=== PATIENT | female | born 1970 | race Caucasian/White ===

== ENCOUNTER → 2017-02-27 | Outpatient (CLI) | payer OTHER ==
--- NOTE | 2017-03-02 11:46 | MM ---
Reason for exam: screening (asymptomatic). Last mammogram was performed 1 year ago. History: Family history of breast cancer in mother at age 62. Taking hormonal contraceptives for 23 years beginning at age 15. Physical Findings: A clinical breast exam by your physician is recommended on an annual basis and results should be correlated with mammographic findings. MG 3D Screening Mammo W/Cad Bilateral CC and MLO view(s) were taken. Prior study comparison: February 15, 2016, bilateral MG 3d diag mammo w/cad [facility]. January 05, 2015, bilateral MG 3d screening mammo w/cad. The breast tissue is heterogeneously dense. This may lower the sensitivity of mammography. No suspicious abnormality. No significant changes when compared with prior studies. ASSESSMENT: Negative, BI-RAD 1 RECOMMENDATION: Routine screening mammogram of both breasts in 1 year.
== END | disposition home or self-care (01) ==
LOC: RADMAMWWP 15:34
PROVIDERS: ATTEND Obstetrics & Gynecology
DX: Z12.31 Encounter for screening mammogram for malignant neoplasm of breast (principal); Z80.3 Family history of malignant neoplasm of breast
CPT/HCPCS: 77063; 77067

== ENCOUNTER → 2017-02-27 | Outpatient (CLI) | payer OTHER ==
[2017-02-27 16:25] LABS: Basophils % (A) 0 %; Eosinophils # (A) 0.1 k/uL (0-0.7); Eosinophils % (A) 1 %; HCT 40.9 % (34.0-46.0); HGB 13.6 gm/dL (11.4-16.0); Lymphocytes # (A) 2.8 k/uL (1.0-4.8); Lymphocytes % (A) 36 %; MCH 30.2 pg (25.0-35.0); MCHC 33.1 g/dL (31.0-37.0); Monocytes # (A) 0.4 k/uL (0-1.0); Monocytes % (A) 5 %; Neutrophils # (A) 4.4 k/uL (1.3-7.7); Neutrophils % (A) 56 %; Platelet Count 376 k/uL (150-450); RDW 12.6 % (11.5-15.5); WBC 7.8 k/uL (3.8-10.6)
[2017-02-27 16:36] LABS: Anion Gap 14 mmol/L; Blood Urea Nitrogen 17 mg/dL (7-17); Calcium 10.4 mg/dL (8.4-10.2); Carbon Dioxide 31 mmol/L (22-30); Chloride 99 mmol/L (98-107); Glucose 105 mg/dL (74-99); Potassium 3.8 mmol/L (3.5-5.1); Sodium 144 mmol/L (137-145)
== END | disposition home or self-care (01) ==
LOC: LABWHC1 16:00
PROVIDERS: ATTEND Internal Medicine Clinical Cardiac Electrophysiology
DX: I47.1 Supraventricular tachycardia (principal)
CPT/HCPCS: 36415; 80048; 85025; 85027

== ENCOUNTER 2017-03-16 09:15 | Day surgery (SDC) | payer OTHER ==
[2017-03-03 13:25] VITALS: BMI 22.8
[~2017-03-16 09:15] MED LIST: LACTATED RINGERS 1,000 ML IV SCH; MIDAZOLAM 2 MG/2 ML VIAL IV PRN; ONDANSETRON 4 MG/2 ML VIAL IVP ONE; fentaNYL (PF) 50 MCG/ML 2 ML AMP IV PRN
[2017-03-16] MEDS: SODIUM CHLORIDE 0.9% 1,000 ML IV SCH ×2 (09:37→19:43)
[2017-03-16] MEDS ORDERED: SODIUM CHLORIDE 0.9% 1,000 ML IV ONE (10:24)
[2017-03-16] MEDS ORDERED: ISOPROTERENOL 250 MCG/1.25 ML SYR IV ONE (13:24)
[2017-03-16] MEDS ORDERED: diphenhydrAMINE 50 MG/ML 1 ML VIAL ONE (13:24)
[2017-03-16] MEDS ORDERED: MIDAZOLAM 2 MG/2 ML VIAL ONE (13:24)
[2017-03-16] MEDS ORDERED: fentaNYL (PF) 50 MCG/ML 2 ML AMP ONE (13:24)
[2017-03-16] MEDS ORDERED: IV FLUID CONTINUATION 900 ML IV ONE (13:24)
[2017-03-16] MEDS ORDERED: PROPOFOL 10 MG/ML 20 ML VIAL IV ONE (13:24)
--- NOTE | 2017-03-16 13:54 | P.PCN ---
Preoperative Diagnosis: Tilt table test indication for procedure recurrent presyncopal spells Twelve-lead ECG shows sinus rhythm normal AR narrow QRS normal QT interval no delta waves no epsilon waves normal ST segments Tilt table test per protocol blood pressure at baseline was 138/84 mmHg Baseline heart rate 77 beats a minute Patient was tilted upright at an angle of 70 per protocol There was no change in her blood pressure but Baseline heart rate did increase from 75 beats a minute 109 beats a minute within the first 10 minutes and remained between 110-125 beats a minute thereafter at is the end of the procedure she did feel that the heart was racing a bit and heart rate was 124 beats a minute. When she was laid supine, heart rate decreased to 106 beats a minute Impression Mild orthostatic intolerance no evidence for neurocardiogenic phenomena
[2017-03-16] MEDS ORDERED: LIDOCAINE 2% INJ 20 MG/ML SQ ONE (14:00)
[2017-03-16] MEDS ORDERED: HEPARIN SODIUM (1,000 UNIT/ML) 1,000 UNIT in SODIUM CHLORIDE 0.9% 1,000 ML IRRIGATION ONE (14:31)
[2017-03-16] MEDS ORDERED: ACETAMINOPHEN TAB 325 MG TAB PO PRN (15:42)
[2017-03-16] MEDS ORDERED: HYDROcodone/APAP 5-325MG 1 EACH TAB PO PRN (15:42)
[2017-03-16] MEDS ORDERED: ACETAMINOPHEN IV (For NPO) 1,000 MG in EMPTY BAG 1 BAG IVPB ONE (15:42)
--- NOTE | 2017-03-16 16:42 | CE ---
CARDIAC ELECTROPHYSIOLOGY REPORT Rubia Staley is a 46-year-old female patient of Dr. Wilder who was referred for evaluation management of recurrent palpitations that was also was sensitive. She underwent a diagnostic EP study. Venous sheaths were placed in the right femoral vein (3 venous sheaths were placed in the right femoral vein) and diagnostic catheters were placed in the high right atrium, His bundle area and the RV. Later the catheter was placed in the coronary sinus. Sinus cycle length 694 milliseconds, KS interval 140 milliseconds. QRS 88 milliseconds, QT interval 375 milliseconds. Baseline AH interval 67 milliseconds, HV interval 41 milliseconds. Sinus node recovery times of 600, 500, and 400 milliseconds were 806 milliseconds, 783 and 742 milliseconds. AV node Wenckebach block 320 milliseconds. Tachycardia was very easily inducible. We estimate straight pacing from the high right atrium. CS pacing was also performed. It was more easily inducible from the high right atrial pacing. This appeared to be an atrial tachycardia in a hi to low sequence. 3D mapping of the right atrium was performed. The tachycardia was localized to the high ashwin in the right atrium. Phrenic nerve pacing was performed. There was no evidence for phrenic nerve stimulation at that site of earliest atrial activity. Excellent unipolar electrograms and very early bipolar electrograms were noted. Successful RF ablation was performed. The tachycardia was rendered completely noninducible. Thereafter, a detailed EP study was performed from the high right atrium, RV, coronary sinus and multiple areas along the focal site but no tachycardia was inducible. High- dose Isuprel was given. Atrial pacing was continued. No tachycardia was inducible. It was noted that prior to starting ablation Isuprel somewhat suppressed the tachycardia. Atrial extra stimulation was performed. Straight pacing was performed. Burst stimulation was performed. During RF ablation, the site in the focal tachycardia was originating in the ashwin and therefore ablation were performed both superiorly and inferior to the earliest site as well as on either side anteriorly and posteriorly on the ashwin. The ashwin was carefully localized electrically and ablated adequately to eliminate the tachycardia Patient tolerated the procedure well without any acute complications. 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 The tachycardia was rendered noninducible. PLAN: 1. Discontinue diltiazem. 2. Since the patient also has evidence of orthostatic intolerance, I would discontinue hydrochlorothiazide also. MMODL / IJN: [id number] /
[2017-03-17 01:39] VITALS: RESP 18
[2017-03-17 11:52] VITALS: BP 125/89; PULSE 102; TEMP 97.7
--- NOTE | 2017-03-17 11:55 | P.DS ---
Providers Attending physician: Sarthak Boudreaux Primary care physician: Stated None Hospital Course: Patient is doing well. She is ambulating in the hallways no chest discomfort no undue shortness of breath no pleuritic chest discomfort Vitals are stable, blood pressure 125/89 mmHg pulse rate 102 beats a minute temperature 97.7F Heart sounds S1-S2 are soft no murmurs or gallops Breath sounds are clear no rhonchi or crackles Abdomen is soft nontender Extremities are warm no edema Impression High right atrial tachycardia, Orthostatic intolerance Plan Stop hydrochlorothiazide stop diltiazem Follow up in the the office in 2-3 weeks Plan - Discharge Summary Discharge Rx Participant: Yes New Discharge Prescriptions: Discontinued Hydrochlorothiazide 25 mg PO DAILY Diltiazem Oral [Cardizem Oral] 30 mg PO BID No Action Ranitidine HCl [Zantac] 150 mg PO HS Norethindrone-E.estradiol-Iron [Gildess Fe 1-20 Tablet] 1 tab PO DAILY Niacin 500 mg PO DAILY Cholecalciferol [Vitamin D3] 5,000 unit PO DAILY Omeprazole 20 mg PO DAILY Turmeric Root Extract [Turmeric] 500 mg PO DAILY Ferrous Sulfate [Feosol] 325 mg PO FR Discharge Medication List Ranitidine HCl [Zantac] 150 mg PO HS 04/14/14 [History] Norethindrone-E.estradiol-Iron [Gildess Fe 1-20 Tablet] 1 tab PO DAILY 04/19/14 [History] Cholecalciferol [Vitamin D3] 5,000 unit PO DAILY 03/03/17 [History] Ferrous Sulfate [Feosol] 325 mg PO FR 03/03/17 [History] Niacin 500 mg PO DAILY 03/03/17 [History] Omeprazole 20 mg PO DAILY 03/03/17 [History] Turmeric Root Extract [Turmeric] 500 mg PO DAILY 03/03/17 [History] Follow up Appointment(s)/Referral(s): Sarthak Boudreaux MD [STAFF PHYSICIAN] - 2 Weeks (Office will call with appointment. ) Wes Wilder MD [STAFF PHYSICIAN] - 1 Week Patient Instructions/Handouts: Electrophysiology Study (DC) Activity/Diet/Wound Care/Special Instructions: Post EP study - Ablation instructions 1. Keep access sites dry for 2 days. 2. No heavy lifting or straining for 2 days. 3. Avoid bending the hips repeatedly for 2 days. 4. You may go up and down stairs slowly Call if the following is noted 1. Bleeding, increasing swelling or pain at the access sites. 2. Increasing chest discomfort, especially upon taking a deep breath. 3. Increasing shortness of breath, at rest or with exertion. 4. Undue cough / phlegm 5. Difficulty or pain while swallowing. 6. Pain or change in color in the extremities. 7. Fever, chills, rigors. 8. Increasing headache or neurologic symptoms. 9. Dizziness, fainting, palpitations Stop diltiazem, stop hydrochlorothiazide Continue all other medications all of Dr. Wilder in 1 week and follow with Dr. Boudreaux in 2-3 weeks
== END 2017-03-17 13:27 | disposition home or self-care (01) ==
LOC: CATHEP 09:15 → 3OBS 15:22 → CATHEP 03-17 13:27
PROVIDERS: ATTEND Internal Medicine Clinical Cardiac Electrophysiology
DX: I47.1 Supraventricular tachycardia (principal); I10 Essential (primary) hypertension; Z79.899 Other long term (current) drug therapy; Z88.6 Allergy status to analgesic agent; Z88.5 Allergy status to narcotic agent; Z88.8 Allergy status to other drugs, medicaments and biological substances
CPT/HCPCS: 93623; 93613; 93660; 93653; 82533; 81025; C1894; C1769 ×2; C1730; C1732; J2001; J2250; J1200; J3010; J1644; J0131; J2704; 93005

== ENCOUNTER → 2018-04-30 | Outpatient (CLI) | payer OTHER ==
--- NOTE | 2018-05-03 10:10 | MM ---
Reason for exam: screening (asymptomatic). Last mammogram was performed 1 year and 2 months ago. History: Family history of breast cancer in mother at age 62. Taking hormonal contraceptives for 23 years beginning at age 15. Physical Findings: A clinical breast exam by your physician is recommended on an annual basis and results should be correlated with mammographic findings. MG 3D Screening Mammo W/Cad Bilateral CC and MLO view(s) were taken. Prior study comparison: February 27, 2017, bilateral MG 3d screening mammo w/cad. February 15, 2016, bilateral MG 3d diag mammo w/cad [facility]. The breast tissue is heterogeneously dense. This may lower the sensitivity of mammography. Nodular density lower inner right breast 3.9cm from nipple. This finding is changed when compared with previous exams. ASSESSMENT: Incomplete: need additional imaging evaluation, BI-RAD 0 RECOMMENDATION: Special view mammogram of the right breast. If lesion persists on supplemental views, image directed ultrasound is recommended. [facility] will attempt to contact patient to return for supplemental views and ultrasound if indicated.
== END | disposition home or self-care (01) ==
LOC: RADMAMWWP 03-26 11:13
PROVIDERS: ATTEND Family Medicine
DX: Z12.31 Encounter for screening mammogram for malignant neoplasm of breast (principal)
CPT/HCPCS: 77063; 77067

== ENCOUNTER → 2018-05-14 | Outpatient (CLI) | payer OTHER ==
[2018-05-14 10:01] LABS: Basophils # (A) 0.1 k/uL (0-0.2); Basophils % (A) 1 %; Eosinophils # (A) 0.1 k/uL (0-0.7); Eosinophils % (A) 1 %; HCT 43.2 % (34.0-46.0); Lymphocytes # (A) 1.7 k/uL (1.0-4.8); Lymphocytes % (A) 27 %; MCH 29.7 pg (25.0-35.0); MCHC 32.5 g/dL (31.0-37.0); MCV 91.3 fL (80.0-100.0); Mean Platelet Volume 6.2; Monocytes # (A) 0.3 k/uL (0-1.0); Monocytes % (A) 5 %; Neutrophils # (A) 4.1 k/uL (1.3-7.7); Neutrophils % (A) 64 %; Platelet Count 313 k/uL (150-450); RBC 4.73 m/uL (3.80-5.40); RDW 12.9 % (11.5-15.5); WBC 6.4 k/uL (3.8-10.6)
[2018-05-14 10:03] LABS: INR 0.9 (<1.2); Prothrombin Time 9.5 sec (9.0-12.0)
[2018-05-14 10:26] LABS: Anion Gap 8 mmol/L; Blood Urea Nitrogen 12 mg/dL (7-17); Carbon Dioxide 30 mmol/L (22-30); Chloride 103 mmol/L (98-107); Glucose 91 mg/dL (74-99); Potassium 4.7 mmol/L (3.5-5.1); Sodium 141 mmol/L (137-145)
== END | disposition home or self-care (01) ==
LOC: LABWHC1 08:16
PROVIDERS: ATTEND Internal Medicine
DX: I47.1 Supraventricular tachycardia (principal)
CPT/HCPCS: 36415; 80048; 85025; 85610

== ENCOUNTER → 2018-05-14 | Outpatient (CLI) | payer OTHER ==
--- NOTE | 2018-05-14 12:26 | MM ---
Reason for exam: additional evaluation requested from abnormal screening. Last mammogram was performed less than 1 month ago. History: Family history of breast cancer in mother at age 62 and breast cancer in paternal cousin. Taking hormonal contraceptives for 23 years beginning at age 15. Physical Findings: A clinical breast exam by your physician is recommended on an annual basis and results should be correlated with mammographic findings. MG 3D Work Up W/Cad RT Spot compression CC, spot compression MLO, and LM view(s) were taken of the right breast. Prior study comparison: April 30, 2018, bilateral MG 3d screening mammo w/cad. February 27, 2017, bilateral MG 3d screening mammo w/cad. The breast tissue is heterogeneously dense. This may lower the sensitivity of mammography. No distinct lesion persists. These results were verbally communicated with the patient and result sheet given to the patient on 05/14/18. ASSESSMENT: Negative, BI-RAD 1 RECOMMENDATION: Return to routine screening mammogram schedule for both breasts.
== END ==
LOC: RADMAMWWP 08:57
PROVIDERS: ATTEND Family Medicine
DX: R92.8 Other abnormal and inconclusive findings on diagnostic imaging of breast (principal)
CPT/HCPCS: 77061; 77065

== ENCOUNTER → 2019-08-19 | Outpatient (CLI) | payer OTHER ==
--- NOTE | 2019-08-22 11:00 | MM ---
Reason for exam: screening (asymptomatic). Last mammogram was performed 1 year and 3 months ago. History: Family history of breast cancer in mother at age 62 and breast cancer in paternal cousin. Taking hormonal contraceptives for 23 years beginning at age 15. Physical Findings: A clinical breast exam by your physician is recommended on an annual basis and results should be correlated with mammographic findings. MG 3D Screening Mammo W/Cad Bilateral CC and MLO view(s) were taken. Prior study comparison: May 14, 2018, right breast MG 3d work up w/cad RT. April 30, 2018, bilateral MG 3d screening mammo w/cad. The breast tissue is heterogeneously dense. This may lower the sensitivity of mammography. There is chronic nodularity in the left breast. Likely a loop recorder device partially seen on the left CC view. Questionable subtle distortion right CC view laterally. ASSESSMENT: Incomplete: need additional imaging evaluation, BI-RAD 0 RECOMMENDATION: Special view mammogram of the right breast. (3D) If lesion persists on supplemental views, image directed ultrasound is recommended. [facility] will attempt to contact patient to return for supplemental views and ultrasound if indicated.
== END | disposition home or self-care (01) ==
LOC: RADMAMWWP 15:40
PROVIDERS: ATTEND Obstetrics & Gynecology
DX: Z12.31 Encounter for screening mammogram for malignant neoplasm of breast (principal)
CPT/HCPCS: 77063; 77067

== ENCOUNTER → 2019-08-25 | Outpatient (CLI) | payer OTHER ==
--- NOTE | 2019-08-25 11:03 | MM ---
Reason for exam: additional evaluation requested from abnormal screening. Last mammogram was performed less than 1 month ago. History: Family history of breast cancer in mother at age 62 and breast cancer in paternal cousin. Taking hormonal contraceptives for 23 years beginning at age 15. Physical Findings: Nurse did not find any significant physical abnormalities on exam. MG 3D Work Up W/Cad RT CC and MLO view(s) were taken of the right breast. Prior study comparison: August 19, 2019, bilateral MG 3d screening mammo w/cad. May 14, 2018, right breast MG 3d work up w/cad RT. The breast tissue is heterogeneously dense. This may lower the sensitivity of mammography. The questioned lateral distortion does not persist on additional views. No significant new findings when compared with previous films. These results were verbally communicated with the patient and result sheet given to the patient on 08/25/19. ASSESSMENT: Negative, BI-RAD 1 RECOMMENDATION: Return to routine screening mammogram schedule for both breasts.
== END | disposition home or self-care (01) ==
LOC: RADMAMWWP 09:29
PROVIDERS: ATTEND Obstetrics & Gynecology
DX: R92.8 Other abnormal and inconclusive findings on diagnostic imaging of breast (principal)
CPT/HCPCS: 77061; 77065

== ENCOUNTER → 2020-10-11 | Outpatient (CLI) | payer OTHER ==
--- NOTE | 2020-10-15 10:34 | MM ---
Reason for exam: screening (asymptomatic). Last mammogram was performed 1 year and 2 months ago. History: Family history of breast cancer in mother at age 62 and breast cancer in paternal cousin. Taking hormonal contraceptives for 23 years beginning at age 15. Physical Findings: A clinical breast exam by your physician is recommended on an annual basis and results should be correlated with mammographic findings. MG 3D Screening Mammo W/Cad Bilateral CC and MLO view(s) were taken. Prior study comparison: August 25, 2019, right breast MG 3d work up w/cad RT. August 19, 2019, bilateral MG 3d screening mammo w/cad. May 14, 2018, right breast MG 3d work up w/cad RT. April 30, 2018, bilateral MG 3d screening mammo w/cad. February 27, 2017, bilateral MG 3d screening mammo w/cad. The breast tissue is heterogeneously dense. This may lower the sensitivity of mammography. Medial left loop recorder device. No significant changes when compared with prior studies. ASSESSMENT: Negative, BI-RAD 1 RECOMMENDATION: Routine screening mammogram of both breasts in 1 year.
== END | disposition home or self-care (01) ==
LOC: RADMAMWWP 10:49
PROVIDERS: ATTEND Obstetrics & Gynecology
DX: Z12.31 Encounter for screening mammogram for malignant neoplasm of breast (principal); Z80.3 Family history of malignant neoplasm of breast
CPT/HCPCS: 77063; 77067

== ENCOUNTER → 2021-10-24 | Outpatient (CLI) | payer OTHER ==
--- NOTE | 2021-10-25 08:57 | MM ---
Reason for Exam: Screening (asymptomatic). Last mammogram was performed 1 year(s) and 1 month(s) ago. Patient History: Menarche at age 14. Patient has no children. Currently using Hormonal Contraceptives, beginning at age 15 for 23 years. Paternal cousin had breast cancer, age 50. Mother had breast cancer, age 62. Last menstrual period: 10/17/2021 Risk Values: Viviana 5 year model risk: 1.8%. NCI Lifetime model risk: 17.3%. Prior Study Comparison: 08/19/2019 Bilateral Screening Mammogram, [facility]. 08/25/2019 Right Diagnostic Mammogram, [facility]. 10/11/2020 Bilateral Screening Mammogram, [facility]. Tissue Density: The breast tissue is extremely dense which could obscure a lesion on mammography. Findings: Analyzed By CAD. No suspicious groups of microcalcifications, spiculated or lobular masses, architectural distortion or other secondary signs of malignancy are mammographically apparent. Overall Assessment: Benign, BI-RAD 2 Management: Screening Mammogram of both breasts in 1 year. A negative mammogram report should not preclude additional follow up of suspicious palpable abnormalities. Patient should continue monthly self breast exam. A clinical breast exam by your physician is recommended on an annual basis and results should be correlated with mammographic findings. Electronically signed and approved by: Rangel Rocha D.O. Radiologis
== END | disposition home or self-care (01) ==
LOC: RADMAMWWP 13:15
PROVIDERS: ATTEND Obstetrics & Gynecology
DX: Z12.31 Encounter for screening mammogram for malignant neoplasm of breast (principal); Z80.3 Family history of malignant neoplasm of breast
CPT/HCPCS: 77063; 77067

== ENCOUNTER → 2023-11-17 | Outpatient (CLI) | payer OTHER ==
--- NOTE | 2023-11-23 11:03 | MM ---
Reason for Exam: Screening (asymptomatic). Last screening mammogram was performed 12 month(s) ago. Patient History: Menarche at age 14. Patient has no children. Perimenopausal. Currently using Hormonal Contraceptives, starting at age 15. Paternal cousin had breast cancer, age 50. Mother had breast cancer, age 62. Risk Values: Viviana 5 year model risk: 2.0%. NCI Lifetime model risk: 16.6%. Prior Study Comparison: 02/27/2017 Bilateral Screening Mammogram, [facility]. 04/30/2018 Bilateral Screening Mammogram, [facility]. 05/14/2018 Right Diagnostic Mammogram, [facility]. 08/19/2019 Bilateral Screening Mammogram, [facility]. 08/25/2019 Right Diagnostic Mammogram, [facility]. 10/11/2020 Bilateral Screening Mammogram, [facility]. 10/24/2021 Bilateral MG 3D screening mammo w/cad, [facility]. 11/14/2022 Bilateral MG 3D screening mammo w/cad, [facility]. Tissue Density: The breasts are heterogeneously dense, which may obscure small masses. Findings: Analyzed By CAD. Right breast: There is no suspicious group of microcalcifications or new suspicious mass. Left breast: There is no suspicious group of microcalcifications or new suspicious mass. Overall Assessment: Negative, BI-RAD 1 Management: Screening Mammogram of both breasts in [address] [facility] will attempt to contact patient to return for supplemental views and ultrasound if indicated. Patient should continue monthly self-breast exams. A clinical breast exam by your physician is recommended on an annual basis. This exam should not preclude additional follow-up of suspicious palpable abnormalities. Note on Viviana scores and lifetime risk: 1. A Viviana score greater than 3% is considered moderate risk. If this is the case, consider specialist referral to assess eligibility for a risk reducing agent. 2. If overall lifetime risk for the development of breast cancer is 20% or higher, the patient may qualify for future screening with alternating mammogram and breast MRI. [facility], , 11/23/2023 11:00 AM. Electronically signed and approved by: Juan Franklin DO
== END | disposition home or self-care (01) ==
LOC: RADMAMWWP 07:38
PROVIDERS: ATTEND Obstetrics & Gynecology
DX: Z12.31 Encounter for screening mammogram for malignant neoplasm of breast
CPT/HCPCS: 77063; 77067